=== PATIENT | female | born 1950 | race Caucasian/White ===

== ENCOUNTER → 2017-01-16 | Outpatient (CLI) | payer OTHER ==
[~2017-01-16] VITALS: Ht 149.9 cm; Wt 85.8 kg
[~2017-01-16] MED LIST: HYDROCHLOROTHIA25 MG PO; IMITREX50 MG PO; LIPITOR40 MG PO; PRILOSEC20 MG PO; PROAIR HFA8.5 GM IH; SINGULAIR ORAL G4 MG PO; TENORMIN50 MG PO; XYZAL5 MG PO
== END | disposition home or self-care (01) ==
LOC: AMB 09:37
PROC: 0DBE8ZX Excision of Large Intestine, Via Natural or Artificial Opening Endoscopic, Diagnostic (ICD-10-PCS; principal; 2017-01-16)
DX: Z12.11 Encounter for screening for malignant neoplasm of colon (principal); K63.3 Ulcer of intestine; K57.30 Diverticulosis of large intestine without perforation or abscess without bleeding; Z83.49 Family history of other endocrine, nutritional and metabolic diseases; I10 Essential (primary) hypertension; E78.5 Hyperlipidemia, unspecified; G43.009 Migraine without aura, not intractable, without status migrainosus; J45.20 Mild intermittent asthma, uncomplicated; E66.9 Obesity, unspecified; Z91.041 Radiographic dye allergy status; Z88.5 Allergy status to narcotic agent
CPT/HCPCS: 88305; 93005

== ENCOUNTER → 2017-09-04 | Outpatient (CLI) | payer OTHER ==
[~2017-09-04] VITALS: Ht 152.4 cm; Wt 68.9 kg
[~2017-09-04] MED LIST changes: +TOPAMAX25 MG PO
== END | disposition home or self-care (01) ==
LOC: AMB 07:21
PROC: 0DBP8ZX Excision of Rectum, Via Natural or Artificial Opening Endoscopic, Diagnostic (ICD-10-PCS; principal; 2017-09-04)
DX: K62.89 Other specified diseases of anus and rectum (principal); K64.8 Other hemorrhoids; I10 Essential (primary) hypertension; E78.5 Hyperlipidemia, unspecified; J45.20 Mild intermittent asthma, uncomplicated; E66.9 Obesity, unspecified
CPT/HCPCS: 88305; 88341 TC; 88342 TC; 93005; J2250